=== PATIENT | female | born 1960 | race Caucasian/White ===

== ENCOUNTER → 2018-08-05 13:00 | Outpatient (CLI) | payer OTHER, SELFPAY | PROVIDERS: Family Provider Acupuncturist; PCP Acupuncturist | DX: Z23 Encounter for immunization (principal) | CPT/HCPCS: 90471; 90686 ==

== ENCOUNTER → 2019-06-10 14:06 | Outpatient (CLI) | payer OTHER, SELFPAY ==
[2019-06-10 16:50] LABS: Free T3, Triiodothyronine Free 4.62 pg/mL (2.77-5.27); Free T4, Direct Thyroxine 0.89 ng/dL (0.78-2.19)
[2019-06-10 17:05] LABS: Thyroid Stimulating Hormone < 0.02 uIU/mL (0.47-4.68)
[2019-06-16 15:11] LABS: Triiodothyronine T3 Total 154 ng/dL (76-181)
== END ==
PROVIDERS: PCP Internal Medicine; Visit Provider Internal Medicine
DX: E03.9 Hypothyroidism, unspecified (principal)
CPT/HCPCS: 36415; 84439; 84443; 84480; 84481

== ENCOUNTER → 2019-07-01 15:27 | Outpatient (CLI) | payer OTHER, SELFPAY | PROVIDERS: PCP Internal Medicine | DX: Z23 Encounter for immunization (principal) | CPT/HCPCS: 90471; 90686 ==

== ENCOUNTER → 2019-07-12 12:22 | Outpatient (CLI) | payer OTHER, SELFPAY ==
[2019-07-12 13:58] LABS: Free T4, Direct Thyroxine 2.52 ng/dL (0.78-2.19)
[2019-07-12 14:12] LABS: Thyroid Stimulating Hormone < 0.02 uIU/mL (0.47-4.68)
[2019-07-14 17:04] LABS: Triiodothyronine T3 Total 113 ng/dL (76-181)
== END ==
PROVIDERS: PCP Internal Medicine; Visit Provider Internal Medicine
DX: E03.9 Hypothyroidism, unspecified (principal)
CPT/HCPCS: 36415; 84439; 84443; 84480

== ENCOUNTER → 2019-08-23 12:02 | Outpatient (CLI) | payer OTHER, SELFPAY ==
[2019-08-23 13:28] LABS: Free T4, Direct Thyroxine 1.89 ng/dL (0.78-2.19)
[2019-08-23 13:42] LABS: Thyroid Stimulating Hormone < 0.02 uIU/mL (0.47-4.68)
[2019-08-25 14:57] LABS: Triiodothyronine T3 Total 134 ng/dL (76-181)
== END ==
PROVIDERS: PCP Internal Medicine; Visit Provider Internal Medicine
DX: E03.9 Hypothyroidism, unspecified (principal)
CPT/HCPCS: 36415; 84439; 84443; 84480

== ENCOUNTER → 2019-08-30 07:44 | Outpatient (CLI) | payer OTHER, SELFPAY ==
--- NOTE | 2019-08-30 | DI.US.S_ITS ---
PROCEDURE: US THYROID INDICATIONS: HYPOTHYROIDISM, UNSPECIFIED TECHNIQUE: Real-time scanning was performed of the thyroid gland, with image documentation. COMPARISON: None. FINDINGS: Right: Thyroid lobe measures 4.7 x 1.0 x 1.3 cm, and is homogeneous in echotexture. Left: Thyroid lobe measures 4.0 x 0.9 x 1.0 cm, and is homogenous in echotexture. Isthmus: 1.0 mm thick. IMPRESSION: Normal exam. Dictated by: Miguel KAPOOR Interpreted: Sylvia Tolliver MD on 08/30/2019 at 8:41 Approved by: Sylvia Tolliver M.D. on 08/30/2019 at 13:58
== END ==
PROVIDERS: PCP Internal Medicine; Visit Provider Internal Medicine
DX: E03.9 Hypothyroidism, unspecified (principal)
CPT/HCPCS: 76536

== ENCOUNTER → 2019-11-25 10:01 | Outpatient (CLI) | payer OTHER, SELFPAY ==
[2019-11-25 12:44] LABS: Free T4, Direct Thyroxine 1.85 ng/dL (0.78-2.19)
[2019-11-25 12:57] LABS: Thyroid Stimulating Hormone < 0.02 uIU/mL (0.47-4.68)
== END ==
PROVIDERS: PCP Internal Medicine; Referring Provider Internal Medicine Endocrinology, Diabetes & Metabolism; Visit Provider Internal Medicine Endocrinology, Diabetes & Metabolism
DX: E03.9 Hypothyroidism, unspecified (principal)
CPT/HCPCS: 36415; 84439; 84443

== ENCOUNTER → 2019-11-29 08:01 | Outpatient (CLI) | payer OTHER, SELFPAY ==
[2019-11-29 08:59] LABS: Cholesterol 202 mg/dL (140-199); HDL Cholesterol 72 mg/dL (40-60); LDL Cholesterol Calculated 116 mg/dL (<100); Triglycerides 69 mg/dL (35-150)
== END ==
PROVIDERS: PCP Internal Medicine; Referring Provider Internal Medicine; Visit Provider Internal Medicine
DX: E78.5 Hyperlipidemia, unspecified (principal)
CPT/HCPCS: 36415; 80061

== ENCOUNTER → 2019-12-20 09:51 | Outpatient (CLI) | payer OTHER, SELFPAY ==
[2019-12-23 11:21] LABS: Testosterone Free 0.43 ng/dL (0.10-0.85)
[2019-12-23 12:44] LABS: Testosterone Total 24.9 ng/dL (.)
== END ==
PROVIDERS: PCP Internal Medicine; Referring Provider Internal Medicine; Visit Provider Internal Medicine
DX: R63.5 Abnormal weight gain (principal)
CPT/HCPCS: 36415; 84402; 84403

== ENCOUNTER → 2020-03-06 12:01 | Outpatient (CLI) | payer OTHER, SELFPAY ==
[2020-03-06 17:20] LABS: Free T4, Direct Thyroxine 1.06 ng/dL (0.78-2.19)
[2020-03-06 17:34] LABS: Thyroid Stimulating Hormone 0.79 uIU/mL (0.47-4.68)
[2020-03-07 06:36] LABS: Triiodothyronine T3 Total 81 ng/dL (71-180)
== END ==
PROVIDERS: PCP Internal Medicine; Referring Provider Internal Medicine; Visit Provider Internal Medicine
DX: E03.9 Hypothyroidism, unspecified (principal)
CPT/HCPCS: 36415; 84439; 84443; 84480

== ENCOUNTER → 2020-07-06 | Outpatient (CLI) | payer OTHER, SELFPAY | PROVIDERS: PCP Internal Medicine; Referring Provider Internal Medicine; Visit Provider Internal Medicine | DX: Z23 Encounter for immunization (principal) | CPT/HCPCS: 90471; 90686 ==

== ENCOUNTER → 2020-10-12 08:42 | Outpatient (CLI) | payer OTHER, SELFPAY ==
[2020-10-12] MEDS: COVID-19 VACC(MODERNA-1)/PF 100 MCG/0.5 ML VIAL IM (08:45)
== END ==
PROVIDERS: Visit Provider Internal Medicine
DX: Z23 Encounter for immunization (principal)
CPT/HCPCS: 0011A; 91301

== ENCOUNTER → 2020-11-08 08:40 | Outpatient (CLI) | payer OTHER, SELFPAY ==
[2020-11-08] MEDS: COVID-19 VACC #2, MRNA(MOD) 100 MCG/0.5 ML VIAL IM (08:42)
== END ==
PROVIDERS: Visit Provider Internal Medicine
DX: Z23 Encounter for immunization (principal)
CPT/HCPCS: 0012A; 91301

== ENCOUNTER → 2020-11-20 08:44 | Outpatient (CLI) | payer OTHER, SELFPAY ==
[2020-11-20 09:50] LABS: Add Manual Diff / Slide Review NO; Basophils Absolute Auto 0 /uL (0-100); Basophils Percent Auto 0.7 % (0-2); Eosinophils Absolute Auto 200 /uL (0-450); Eosinophils Percent Auto 3.7 % (2-4); Hematocrit 44.5 % (36-46); Hemoglobin 14.6 g/dL (12.0-16.0); Lymphocytes Absolute Auto 1500 /uL (1100-4500); Lymphocytes Percent Auto 29.8 % (25-40); Mean Corpuscular HGB Conc 32.7 % (30-36); Mean Corpuscular Hemoglobin 29.4 PG (26-34); Mean Corpuscular Volume 89.8 fL (80-100); Monocytes Absolute Auto 300 /uL (0-900); Monocytes Percent Auto 6.8 % (3-14); Neutrophils Absolute Auto 3000 /uL (1500-7000); Platelet Count 260 X10^3/uL (150-400); Red Blood Cell Count 4.95 X10^6/uL (4.0-5.2); Red Cell Distribution Width 14.1 % (11.6-14.8); White Blood Cell Count 5.1 X10^3/uL (4.5-11.0)
[2020-11-20 10:06] LABS: Alanine Aminotransferase 24 IU/L (<35); Albumin 4.2 g/dL (3.5-5.0); Albumin Globulin Ratio 1.3 (1.0-2.8); Alkaline Phosphatase 84 U/L (38-126); Aspartate Aminotransferase 22 IU/L (14-36); BUN Creatinine Ratio 19.1 (6-22); Bilirubin Total 0.8 mg/dL (0.2-1.3); Blood Urea Nitrogen 17 mg/dL (7-17); Carbon Dioxide 26 mmol/L (22-32); Chloride 107 mmol/L (98-107); Cholesterol 233 mg/dL (140-199); Estimated Glomerular Filt Rate > 60.0 mL/min (>60); Globulin 3.2 g/dL (1.7-4.1); Glucose 121 mg/dL (80-110); HDL Cholesterol 73 mg/dL (40-60); HEMOLYSIS < 15 (0-50); LDL Cholesterol Calculated 144 mg/dL (<100); Potassium 3.7 mmol/L (3.4-5.1); Sodium 138 mmol/L (137-145); Total Protein 7.4 g/dL (6.3-8.2); Triglycerides 82 mg/dL (35-150)
[2020-11-20 10:44] LABS: Free T4, Direct Thyroxine 1.45 ng/dL (0.78-2.19)
[2020-11-20 10:58] LABS: Thyroid Stimulating Hormone 1.09 uIU/mL (0.47-4.68)
[2020-11-21 06:07] LABS: Triiodothyronine T3 Total 99 ng/dL (71-180)
[2020-11-21 11:37] LABS: Hemoglobin A1C% w Est Avg Glu 5.6 % (4.0-6.0)
== END ==
PROVIDERS: PCP Physician Assistant; Referring Provider Physician Assistant; Visit Provider Physician Assistant
DX: E03.9 Hypothyroidism, unspecified (principal); E78.5 Hyperlipidemia, unspecified
CPT/HCPCS: 36415; 80053; 80061; 83036; 84439; 84443; 84480; 85025

== ENCOUNTER → 2021-07-12 14:50 | Outpatient (CLI) | payer OTHER, SELFPAY | PROVIDERS: PCP Physician Assistant; Referring Provider Internal Medicine; Visit Provider Internal Medicine | DX: Z23 Encounter for immunization (principal) | CPT/HCPCS: 90471; 90686 ==

== ENCOUNTER → 2021-08-11 13:19 | Outpatient (CLI) | payer OTHER, SELFPAY ==
--- NOTE | 2021-08-11 13:19 | DI.MG.S_ITS ---
BILATERAL DIGITAL SCREENING MAMMOGRAM 3D/2D WITH CAD: 08/11/2021 CLINICAL: Routine screening. Comparison is made to exam dated: 03/17/2012 [facility]. The tissue of both breasts is heterogeneously dense. This may lower the sensitivity of mammography. Current study was also evaluated with a Computer Aided Detection (CAD) system. There is an oval equal density focal asymmetry with an obscured and circumscribed margin in the left breast at 5 o'clock anterior depth. No other significant masses, calcifications, or other findings are seen in either breast. IMPRESSION: INCOMPLETE: NEEDS ADDITIONAL IMAGING EVALUATION The oval equal density focal asymmetry in the left breast is indeterminate. Mediolateral and spot compression views as well as additional views with possible ultrasound are recommended. This exam was interpreted at Station ID: [id number]. NOTE: For mammograms, a report in lay terms will be sent to the patient. Approximately 15% of breast malignancies will not be visualized mammographically. In the management of a palpable breast mass, a negative mammogram must not discourage biopsy of a clinically suspicious lesion. Electronically Signed By: Jeff donnelly/grey:08/13/2021 11:31:30 letter sent: Additional Imaging Needed ACR BI-RADS Category 0: Incomplete 3340F
== END ==
PROVIDERS: PCP Physician Assistant; Referring Provider Physician Assistant; Visit Provider Physician Assistant
DX: Z12.31 Encounter for screening mammogram for malignant neoplasm of breast (principal)
CPT/HCPCS: 77063; 77067

== ENCOUNTER → 2021-08-17 13:23 | Outpatient (CLI) | payer OTHER, SELFPAY ==
[2021-08-17] MEDS: COVID-19 VACC #3, MRNA(MOD) 50 MCG/0.25 ML VIAL IM (13:25)
== END ==
PROVIDERS: PCP Physician Assistant; Visit Provider Internal Medicine
DX: Z23 Encounter for immunization (principal)
CPT/HCPCS: 0013A; 91301

== ENCOUNTER → 2021-09-05 14:48 | Outpatient (CLI) | payer OTHER, SELFPAY ==
--- NOTE | 2021-09-05 | DI.MG.S_ITS ---
UNILATERAL LEFT DIGITAL DIAGNOSTIC MAMMOGRAM 3D/2D WITH ADDITIONAL VIEWS: 09/05/2021 CLINICAL: Additional evaluation requested from prior study. Comparison is made to exams dated: 08/11/2021 mammogram and 03/17/2012 mammogram - [facility]. The tissue of left breast is heterogeneously dense. This may lower the sensitivity of mammography. The previously seen focal asymmetry in the left breast lower outer quadrant anterior depth is not redemonstrated. There is a tubular, likely vascular, structure in this location. It is suspected that a turn of the vessel was simulating an abnormality on the prior exam. No significant masses, calcifications, or other findings are seen in the breast. IMPRESSION: INCOMPLETE: NEEDS ADDITIONAL IMAGING EVALUATION Targeted ultrasound is recommended for further evaluation and will be performed immediately following this exam. This exam was interpreted at Station ID: [id number]. NOTE: For mammograms, a report in lay terms will be sent to the patient. Approximately 15% of breast malignancies will not be visualized mammographically. In the management of a palpable breast mass, a negative mammogram must not discourage biopsy of a clinically suspicious lesion. Electronically Signed By: Kristofer kimball/grey:09/05/2021 16:09:49 ACR BI-RADS Category 0: Incomplete 3340F
--- NOTE | 2021-09-05 14:50 | DI.US.S_ITS ---
LIMITED ULTRASOUND OF LEFT BREAST: 09/05/2021 CLINICAL: Patient returns today to evaluate a focal asymmetry in the left breast. Comparison is made to exams dated: 09/05/2021 mammogram, 08/11/2021 mammogram, and 03/17/2012 mammogram - [facility]. Real-time ultrasound of the left breast 4-6 o'clock region was performed. Landon scale images of the real-time examination were reviewed. Fibroglandular tissue and blood vessels, but no mass, are identifed in the area of the mammographic area of interest. IMPRESSION: BENIGN No sonographic abnormality is seen corresponding to the mammographic focal asymmetry in the left breast lower outer quadrant, which is compatible with normal breast tissue. Return to screening mammograms is recommended. There is no sonographic evidence of malignancy. A 1 year screening mammogram is recommended. This exam was interpreted at Station ID: [id number]. Electronically Signed By: Kristofer kimball/grey:09/05/2021 16:12:03 letter sent: Normal Exam Ultrasound BI-RADS: 2 Benign
== END ==
PROVIDERS: PCP Physician Assistant; Referring Provider Physician Assistant; Visit Provider Physician Assistant
DX: R92.8 Other abnormal and inconclusive findings on diagnostic imaging of breast (principal)
CPT/HCPCS: 76642; 77065; G0279

== ENCOUNTER → 2021-10-05 09:03 | Outpatient (CLI) | payer OTHER, SELFPAY ==
[2021-10-05 09:26] LABS: COVID19 -Nasal RAPID Negative (Negative)
== END ==
PROVIDERS: PCP Physician Assistant; Visit Provider Nurse Practitioner Family
DX: Z20.822 Contact with and (suspected) exposure to COVID-19 (principal)
CPT/HCPCS: 87635

== ENCOUNTER → 2021-12-28 08:23 | Outpatient (CLI) | payer OTHER, SELFPAY ==
[2021-12-28 09:54] LABS: Hemoglobin A1C% w Est Avg Glu 5.7 % (4.0-6.0)
[2021-12-28 10:00] LABS: Add Manual Diff / Slide Review NO; Basophils Absolute Auto 0 /uL (0-100); Basophils Percent Auto 0.6 % (0-2); Eosinophils Absolute Auto 200 /uL (0-450); Eosinophils Percent Auto 2.9 % (2-4); Hematocrit 42.5 % (36-46); Hemoglobin 14.2 g/dL (12.0-16.0); Lymphocytes Absolute Auto 1600 /uL (1100-4500); Mean Corpuscular HGB Conc 33.4 % (30-36); Mean Corpuscular Hemoglobin 29.1 PG (26-34); Monocytes Absolute Auto 400 /uL (0-900); Neutrophils Absolute Auto 3100 /uL (1500-7000); Neutrophils Percent Auto 59.5 % (50-75); Platelet Count 265 X10^3/uL (150-400); Red Blood Cell Count 4.89 X10^6/uL (4.0-5.2); Red Cell Distribution Width 14.6 % (11.6-14.8); White Blood Cell Count 5.2 X10^3/uL (4.5-11.0)
[2021-12-28 10:04] LABS: Alanine Aminotransferase 25 IU/L (<35); Albumin 4.4 g/dL (3.5-5.0); Albumin Globulin Ratio 1.6 (1.0-2.8); Alkaline Phosphatase 70 U/L (38-126); Aspartate Aminotransferase 22 IU/L (14-36); BUN Creatinine Ratio 21.5 (6-22); Blood Urea Nitrogen 17 mg/dL (7-17); Calcium 9.5 mg/dL (8.4-10.2); Carbon Dioxide 24 mmol/L (22-32); Chloride 107 mmol/L (98-107); Cholesterol 234 mg/dL (140-199); Estimated Glomerular Filt Rate > 60.0 mL/min (>60); Globulin 2.8 g/dL (1.7-4.1); Glucose 116 mg/dL (80-110); HDL Cholesterol 79 mg/dL (40-60); HEMOLYSIS < 15 (0-50); LDL Cholesterol Calculated 137 mg/dL (<100); Potassium 4.3 mmol/L (3.4-5.1); Sodium 139 mmol/L (137-145); Total Protein 7.2 g/dL (6.3-8.2); Triglycerides 88 mg/dL (35-150)
[2021-12-28 10:28] LABS: TSH w/ Reflex to FT4 0.67 uIU/mL (0.47-4.68)
== END ==
PROVIDERS: PCP Physician Assistant; Referring Provider Physician Assistant; Visit Provider Physician Assistant
DX: E03.9 Hypothyroidism, unspecified (principal); E78.5 Hyperlipidemia, unspecified; E66.9 Obesity, unspecified
CPT/HCPCS: 36415; 80053; 80061; 83036; 84443; 85025

== ENCOUNTER → 2022-07-18 14:09 | Outpatient (CLI) | payer OTHER, SELFPAY | PROVIDERS: PCP Family Medicine; Referring Provider Internal Medicine; Visit Provider Internal Medicine | DX: Z23 Encounter for immunization (principal) | CPT/HCPCS: 90471; 90686 ==

== ENCOUNTER → 2022-07-19 07:58 | Outpatient (CLI) | payer OTHER, SELFPAY ==
[2022-07-19 08:41] LABS: Add Manual Diff / Slide Review NO; Basophils Absolute Auto 0 /uL (0-100); Basophils Percent Auto 0.8 % (0-2); Eosinophils Absolute Auto 200 /uL (0-450); Eosinophils Percent Auto 3.4 % (2-4); Hematocrit 42.3 % (36-46); Lymphocytes Absolute Auto 1600 /uL (1100-4500); Mean Corpuscular HGB Conc 33.1 % (30-36); Mean Corpuscular Hemoglobin 28.7 PG (26-34); Mean Corpuscular Volume 86.7 fL (80-100); Monocytes Absolute Auto 400 /uL (0-900); Neutrophils Absolute Auto 3700 /uL (1500-7000); Neutrophils Percent Auto 62.8 % (50-75); Platelet Count 305 X10^3/uL (150-400); Red Blood Cell Count 4.87 X10^6/uL (4.0-5.2); Red Cell Distribution Width 14.3 % (11.6-14.8); White Blood Cell Count 5.8 X10^3/uL (4.5-11.0)
[2022-07-19 09:00] LABS: Hemoglobin A1C% w Est Avg Glu 5.6 % (4.0-6.0)
[2022-07-19 09:24] LABS: Alanine Aminotransferase 25 IU/L (<35); Albumin 4.3 g/dL (3.5-5.0); Albumin Globulin Ratio 1.3 (1.0-2.8); Alkaline Phosphatase 85 U/L (38-126); Aspartate Aminotransferase 22 IU/L (14-36); BUN Creatinine Ratio 15.7 (6-22); Bilirubin Total 0.6 mg/dL (0.2-1.3); Blood Urea Nitrogen 13 mg/dL (7-17); Calcium 8.8 mg/dL (8.4-10.2); Carbon Dioxide 25 mmol/L (22-32); Chloride 104 mmol/L (98-107); Cholesterol 233 mg/dL (140-199); Estimated Glomerular Filt Rate > 60 mL/min (>60); Globulin 3.2 g/dL (1.7-4.1); Glucose 129 mg/dL (80-110); HDL Cholesterol 68 mg/dL (40-60); HEMOLYSIS < 15 (0-50); LDL Cholesterol Calculated 150 mg/dL (<100); Potassium 4.2 mmol/L (3.4-5.1); Sodium 140 mmol/L (137-145); Total Protein 7.5 g/dL (6.3-8.2); Triglycerides 76 mg/dL (35-150)
[2022-07-19 09:37] LABS: Vitamin D 25 Hydroxy (D3) 51.3 ng/mL (30.0-100.0)
[2022-07-19 09:52] LABS: TSH w/ Reflex to FT4 0.97 uIU/mL (0.47-4.68)
[2022-07-19 10:27] LABS: Folate 8.2 ng/mL (2.76-20.0); Vitamin B12 > 1000 pg/mL (239-931)
== END ==
PROVIDERS: PCP Family Medicine; Referring Provider Family Medicine; Visit Provider Family Medicine
DX: E03.9 Hypothyroidism, unspecified (principal); E78.5 Hyperlipidemia, unspecified; R73.9 Hyperglycemia, unspecified; E56.9 Vitamin deficiency, unspecified
CPT/HCPCS: 36415; 80053; 80061; 82306; 82607; 82746; 83036; 84443; 85025

== ENCOUNTER → 2022-09-03 13:06 | Outpatient (ROUT) | payer OTHER, SELFPAY ==
[2022-09-03 13:34] LABS: COVID19 -Nasal RAPID Negative (Negative)
== END ==
PROVIDERS: PCP Family Medicine; Visit Provider Family Medicine
DX: Z20.822 Contact with and (suspected) exposure to COVID-19 (principal)
CPT/HCPCS: 87635

== ENCOUNTER → 2022-11-08 14:58 | Outpatient (CLI) | payer OTHER, SELFPAY ==
--- NOTE | 2022-11-08 | DI.MG.S_ITS ---
BILATERAL DIGITAL SCREENING MAMMOGRAM 3D/2D WITH CAD: 11/08/2022 CLINICAL: Routine screening. Comparison is made to exam dated: 08/11/2021 mammogram - [facility]. There are scattered areas of fibroglandular density in both breasts (category b / 25%-50% glandular tissue). Current study was also evaluated with a Computer Aided Detection (CAD) system. No significant masses, calcifications, or other findings are seen in either breast. There has been no significant interval change. IMPRESSION: NEGATIVE There is no mammographic evidence of malignancy. A 1 year screening mammogram is recommended. Based on the Tyrer Cuzick model (a risk assessment model) the patient's lifetime risk is 8.4% and her 10 year risk is 3.6%. According to the ACR, ACS, and NCCN guidelines, an annual breast MRI exam along with mammogram is recommended if the patient's lifetime risk is 20% or greater. This exam was interpreted at Station ID: [id number]. NOTE: For mammograms, a report in lay terms will be sent to the patient. Approximately 15% of breast malignancies will not be visualized mammographically. In the management of a palpable breast mass, a negative mammogram must not discourage biopsy of a clinically suspicious lesion. Electronically Signed By: Yuki patricia/grey:11/08/2022 16:28:33 letter sent: Normal Exam ACR BI-RADS Category 1: Negative 3341F
== END ==
PROVIDERS: PCP Family Medicine; Referring Provider Family Medicine; Visit Provider Family Medicine
DX: Z12.31 Encounter for screening mammogram for malignant neoplasm of breast (principal); Z78.0 Asymptomatic menopausal state; Z13.820 Encounter for screening for osteoporosis
CPT/HCPCS: 77063; 77067; 77080

== ENCOUNTER → 2023-03-15 09:14 | Outpatient (CLI) | payer OTHER, SELFPAY ==
[2023-03-15 10:17] LABS: Alanine Aminotransferase 24 IU/L (<35); Albumin 4.2 g/dL (3.5-5.0); Albumin Globulin Ratio 1.6 (1.0-2.8); Alkaline Phosphatase 86 U/L (38-126); Aspartate Aminotransferase 21 IU/L (14-36); BUN Creatinine Ratio 14.9 (6-22); Bilirubin Total 0.9 mg/dL (0.2-1.3); Blood Urea Nitrogen 13 mg/dL (7-17); Calcium 9.4 mg/dL (8.4-10.2); Carbon Dioxide 26 mmol/L (22-32); Chloride 103 mmol/L (98-107); Estimated Glomerular Filt Rate > 60 mL/min (>60); Globulin 2.7 g/dL (1.7-4.1); Glucose 124 mg/dL (80-110); HEMOLYSIS < 15 (0-50); Potassium 4.4 mmol/L (3.4-5.1); Sodium 139 mmol/L (137-145); Total Protein 6.9 g/dL (6.3-8.2)
[2023-03-15 10:47] LABS: Thyroid Stimulating Hormone 1.77 uIU/mL (0.47-4.68)
[2023-03-16 07:45] LABS: x Labcorp Estim. Avg Glu (eAG) 120 mg/dL (.); x Labcorp Hemoglobin A1c 5.8 % (4.8-5.6)
== END ==
PROVIDERS: PCP Nurse Practitioner Family; Referring Provider Nurse Practitioner Family; Visit Provider Nurse Practitioner Family
DX: E11.9 Type 2 diabetes mellitus without complications (principal); E03.9 Hypothyroidism, unspecified; E66.9 Obesity, unspecified; K59.00 Constipation, unspecified; G47.00 Insomnia, unspecified
CPT/HCPCS: 36415; 80053; 83036; 84443

== ENCOUNTER → 2023-03-20 13:36 | Outpatient (CLI) | payer OTHER, SELFPAY ==
--- NOTE | 2023-03-20 | DI.ECHO.S_ITS ---
[place] [facility] +---------+ : : [address] : : : : [id number] : : : : Phone: [phone]---------+ Echocardiogram Report + + :Name: PIA WINSLOW I Study Date: 03/20/2023 Height: 63 in : :[facility] ReadingLocation: Weight: 230 lb : : Gender: Female BSA: 2.1 m2 : :: 1960 Age: 62 yrs BP: 144/89 mmHg: :Reason For Study: DYSPNEA : :Ordering Physician: JANET, : :ANGY Performed By: Delfina Ryan : :Referring: ANGY CUNNINGHAM : + + Interpretation Summary 1) Normal left ventricular thickness, size, wall motion, and systolic function (EF 60-65%). 2) Normal right ventricular size and function. 3) No significant valvular abnormalities. 4) No prior Echo available for comparison. Procedure: A two-dimensional transthoracic echocardiogram with color flow and Doppler was performed. The study quality was technically adequate. There is no prior echocardiogram noted for this patient. The patient was in sinus rhythm with heart rates between 63-75 bpm during the exam. Left Ventricle: The left ventricle is normal in size and wall thickness. The ejection fraction is estimated to be 60-65%. Left ventricular systolic function appears normal without focal wall motion abnormalities. Diastolic parameters suggest probable normal left ventricular diastolic function and normal filling pressures. Right Ventricle: The right ventricle is normal in size and function. Atria: The left atrial size is normal. Right atrial size is normal. There is no Doppler evidence for an interatrial shunt. Mitral Valve: The mitral valve leaflets appear mildly thickened, but open well. There is no mitral regurgitation noted. Aortic Valve: The aortic valve is trileaflet. The aortic valve opens well. There is no aortic valve stenosis. No aortic regurgitation is present. Tricuspid Valve: The tricuspid valve is normal in structure and function. There is trace tricuspid regurgitation. Pulmonary artery pressures cannot be estimated because of the lack of a measurable TR jet velocity. Pulmonic Valve: The pulmonic valve leaflets are thin and pliable; valve motion is normal. There is no pulmonic valvular regurgitation. Great Vessels: The aortic root is normal size. The dimensions of the ascending aorta are normal. The IVC is of normal diameter and collapses greater than 50% with a sniff. This suggests a low right atrial pressure of 3 mm Hg. Pericardium/ Pleura There is no pericardial effusion. There is no pleural effusion. MMode/2D Measurements & Calculations LVIDd: 4.8 cm LVOT diam: 2.2 cm LVIDs: 3.2 cm Ao root diam: 2.8 cm FS: 33.7 % asc Aorta Diam: 3.3 cm EPSS: 0.50 cm Ao Arch Diam (Prox Trans): 2.9 cm IVSd: 0.89 cm LVPWd: 1.0 cm LV damico. diameter/BSA (cm/m^2): 2.4 LV sys. diameter/BSA (cm/m^2): 1.6 LA A2 area: 15.9 cm2 RA long axis: 4.6 cm LA A4 area: 19.3 cm2 RA area: 11.9 cm2 LA length (vol): 5.4 cm RA vol: 26.5 ml LA vol: 48.2 ml RA : 12.9 ml/m2 LA vol index: 23.5 ml/m2 IVC diam: 1.6 cm RVD1 (basal): 3.4 cm RVD2 (mid): 2.6 cm TAPSE: 1.9 cm Doppler Measurements & Calculations Ao V2 max: 145.3 cm/sec LVOT Max Jose A: 109.2 cm/sec Ao V2 mean: 100.9 cm/sec LV V1 max P.8 mmHg Ao max P.4 mmHg LV V1 VTI: 26.1 cm Ao mean P.5 mmHg OCTAVIO(I,D): 2.9 cm2 Ao V2 VTI: 33.8 cm OCTAVIO(V,D): 2.9 cm2 sev ratio: 0.77 OCTAVIO indexed to BSA (cm^2/m^2): 1.4 MV E max jose a: 67.9 cm/sec PA V2 max: 102.2 cm/sec MV A max jose a: 91.6 cm/sec PA V2 mean: 70.1 cm/sec MV E/A: 0.74 PA mean P.2 mmHg Med Peak E' Jose A: 6.7 cm/sec PA pr(Accel): 7.1 mmHg E/E' med: 10.2 Lat Peak E' Jose A: 9.6 cm/sec E/E' lat: 7.1 E/e' average: 8.6 MV dec time: 0.23 sec SV(LVOT): 99.4 ml Reading Physician:03:45 PM
--- NOTE | 2023-03-21 02:11 | DI.NM.S_ITS ---
DATE OF SERVICE: 03/20/2023 INDICATIONS: Exertional shortness of breath. CARDIAC STRESS: The patient underwent exercise stress test under the supervision of an attending staff. The patient walked on Arias protocol for 8 minutes and 16 seconds, achieved maximum heart rate of 166 which was 105% of target heart rate. Resting blood pressure 170/88 and peak blood pressure 218/100 mmHg. Achieved 10.1 METs of workload. JESSICA -25%. Baseline rhythm was sinus. During stress, no convincing ischemic changes seen. Occasional PVCs without any complex arrhythmias. No ischemic symptoms. CONCLUSION: Exercise stress test is negative for inducible ischemia. Good exercise tolerance. JESSICA -25%. Elevated baseline blood pressure 170/88 and peak blood pressure 218/100 mmHg. No ischemic EKG changes. No complex arrhythmias. No anginal symptoms. Overall, low-risk exercise stress test. Karen Pulido - KAMI/mony/kt doc#: [id number]/job#: [id number] dd: 03/20/2023 17:10:00 dt: 03/21/2023 02:04:00 DICTATING /COPIES TO: Malena Abarca MD COPIES MNE: FILIPE;
== END ==
PROVIDERS: PCP Nurse Practitioner Family; Referring Provider Internal Medicine Cardiovascular Disease; Visit Provider Internal Medicine Cardiovascular Disease
DX: R06.09 Other forms of dyspnea (principal)
CPT/HCPCS: 93017; 93306

== ENCOUNTER → 2023-04-10 06:42 | Outpatient (CLI) | payer OTHER, SELFPAY ==
--- NOTE | 2023-04-17 10:11 | PM.PFT.1 ---
Pulmonary Function Test Referral & Results Date Patient Seen: 04/10/23 Results: The spirometry demonstrates an FVC of 3.06 L which is 98% of predicted. The FEV1 was measured at 2.54 L which is 106% of predicted. The FEV1/FVC ratio was 83 which is 106% of predicted. Following the administration of bronchodilator there was no notable change to above normal numbers. Lung volumes show an SVC of 3.55 L which is 122% of predicted. The diffusing capacity was measured at 25.37 which is 110% of predicted. The maximum voluntary ventilation was normal Interpretation: This study demonstrates normal pulmonary function
== END ==
PROVIDERS: PCP Nurse Practitioner Family; Referring Provider Nurse Practitioner Family; Visit Provider Nurse Practitioner Family
DX: R06.2 Wheezing (principal)
CPT/HCPCS: 94060; 94726; 94729

== ENCOUNTER → 2023-07-24 08:51 | Outpatient (CLI) | payer OTHER, SELFPAY | PROVIDERS: PCP Nurse Practitioner Family; Referring Provider Family Medicine; Visit Provider Family Medicine | DX: Z23 Encounter for immunization (principal) | CPT/HCPCS: 90471; 90686 ==

== ENCOUNTER → 2023-12-13 09:25 | Outpatient (CLI) | payer OTHER, SELFPAY ==
--- NOTE | 2023-12-13 09:26 | DI.MG.S_ITS ---
BILATERAL DIGITAL SCREENING MAMMOGRAM 3D/2D WITH CAD: 12/13/2023 CLINICAL: Routine screening. Comparison is made to exams dated: 11/08/2022 mammogram, 09/05/2021 mammogram, and 08/11/2021 mammogram - [facility]. There are scattered areas of fibroglandular density in both breasts (category b / 25%-50% glandular tissue). Current study was also evaluated with a Computer Aided Detection (CAD) system. No significant masses, calcifications, or other findings are seen in either breast. There has been no significant interval change. IMPRESSION: NEGATIVE There is no mammographic evidence of malignancy. A 1 year screening mammogram is recommended. Based on the Tyrer Cuzick model (a risk assessment model) the patient's lifetime risk is 8.1% and her 10 year risk is 3.6%. According to the ACR, ACS, and NCCN guidelines, an annual breast MRI exam along with mammogram is recommended if the patient's lifetime risk is 20% or greater. This exam was interpreted at Station ID: [id number]. NOTE: For mammograms, a report in lay terms will be sent to the patient. Approximately 15% of breast malignancies will not be visualized mammographically. In the management of a palpable breast mass, a negative mammogram must not discourage biopsy of a clinically suspicious lesion. Electronically Signed By: Yuki patricia/grey:12/15/2023 16:33:28 letter sent: Normal Exam ACR BI-RADS Category 1: Negative 3341F
== END ==
LOC: MAMMO 09:26
PROVIDERS: PCP Nurse Practitioner Family; Referring Provider Nurse Practitioner Family; Visit Provider Nurse Practitioner Family
DX: Z12.31 Encounter for screening mammogram for malignant neoplasm of breast (principal); R92.323 Mammographic fibroglandular density, bilateral breasts
CPT/HCPCS: 77063; 77067

== ENCOUNTER → 2024-03-24 07:03 | Outpatient (CLI) | payer OTHER, SELFPAY ==
[2024-03-24 08:36] LABS: Alanine Aminotransferase 38 IU/L (<35); Albumin 4.3 g/dL (3.5-5.0); Albumin Globulin Ratio 1.7 (1.0-2.8); Alkaline Phosphatase 107 U/L (38-126); Aspartate Aminotransferase 32 IU/L (14-36); BUN Creatinine Ratio 16.7 (6-22); Bilirubin Total 0.6 mg/dL (0.2-1.3); Blood Urea Nitrogen 16 mg/dL (7-17); Calcium 8.8 mg/dL (8.4-10.2); Carbon Dioxide 25 mmol/L (22-32); Chloride 107 mmol/L (98-107); Estimated Glomerular Filt Rate > 60 mL/min (>60); Globulin 2.5 g/dL (1.7-4.1); Glucose 122 mg/dL (80-110); HEMOLYSIS < 15 (0-50); Potassium 4.4 mmol/L (3.4-5.1); Sodium 138 mmol/L (137-145); Total Protein 6.8 g/dL (6.3-8.2)
[2024-03-24 09:00] LABS: TSH w/ Reflex to FT4 1.81 uIU/mL (0.47-4.68)
[2024-03-24 10:02] LABS: Creatinine Urine Random 193.14 mg/dL
[2024-03-24 10:03] LABS: Microalbumin Urine Random 0.7 mg/dL (0-1.6)
[2024-03-24 21:38] LABS: Hemoglobin A1C% w Est Avg Glu 5.7 % (4.0-6.0)
[2024-04-29 12:38] LABS: Cholesterol,Total 171
[2024-04-29 12:39] LABS: HDL Cholesterol 77; Triglycerides 85
[2024-04-29 12:40] LABS: VLDL Cholesterol Cal 16
[2024-04-29 12:41] LABS: LDL Cholesterol Cal 78
[2024-04-29 12:43] LABS: Cholesterol HDL Ratio 2.2
== END ==
PROVIDERS: PCP Nurse Practitioner Family; Referring Provider Nurse Practitioner Family; Visit Provider Nurse Practitioner Family
DX: E11.9 Type 2 diabetes mellitus without complications (principal); E78.5 Hyperlipidemia, unspecified; I10 Essential (primary) hypertension
CPT/HCPCS: 36415; 80053; 80061; 82043; 82570; 83036; 84443

== ENCOUNTER → 2024-06-04 18:39 | Outpatient (CLI) | payer OTHER, SELFPAY | PROVIDERS: PCP Nurse Practitioner Family; Visit Provider Nurse Practitioner Family | DX: R30.0 Dysuria (principal) | CPT/HCPCS: 87086 ==

== ENCOUNTER → 2024-08-09 | Outpatient (CLI) | payer OTHER, SELFPAY | PROVIDERS: PCP Nurse Practitioner Family; Referring Provider Internal Medicine; Visit Provider Internal Medicine | DX: Z23 Encounter for immunization (principal) | CPT/HCPCS: 90471; 90656 ==

== ENCOUNTER → 2025-03-08 08:07 | Outpatient (CLI) | payer OTHER, SELFPAY ==
[2025-03-08 08:56] LABS: Add Manual Diff / Slide Review NO; Basophils Absolute Auto 100 /uL (0-100); Basophils Percent Auto 0.9 % (0-2); Eosinophils Absolute Auto 200 /uL (0-450); Eosinophils Percent Auto 3.9 % (2-4); Hematocrit 43.3 % (36-46); Hemoglobin 14.2 g/dL (12.0-16.0); Lymphocytes Absolute Auto 1600 /uL (1100-4500); Lymphocytes Percent Auto 27.3 % (25-40); Mean Corpuscular HGB Conc 32.8 % (30-36); Mean Corpuscular Hemoglobin 29.5 PG (26-34); Mean Corpuscular Volume 89.8 fL (80-100); Monocytes Absolute Auto 400 /uL (0-900); Monocytes Percent Auto 6.2 % (3-14); Neutrophils Absolute Auto 3600 /uL (1500-7000); Neutrophils Percent Auto 61.7 % (50-75); Platelet Count 303 X10^3/uL (150-400); Red Blood Cell Count 4.83 X10^6/uL (4.0-5.2); Red Cell Distribution Width 14.5 % (11.6-14.8); White Blood Cell Count 5.9 X10^3/uL (4.5-11.0)
[2025-03-08 09:23] LABS: Hemoglobin A1C% w Est Avg Glu 5.3 % (4.0-6.0)
[2025-03-08 09:38] LABS: Alanine Aminotransferase 18 IU/L (<35); Albumin 4.4 g/dL (3.5-5.0); Alkaline Phosphatase 71 U/L (38-126); Aspartate Aminotransferase 21 IU/L (14-36); BUN Creatinine Ratio 18.6 (6-22); Blood Urea Nitrogen 16 mg/dL (7-17); Calcium 9.3 mg/dL (8.4-10.2); Carbon Dioxide 27 mmol/L (22-32); Chloride 105 mmol/L (98-107); Cholesterol 179 mg/dL (140-199); Estimated Glomerular Filt Rate > 60 mL/min (>60); Globulin 2.2 g/dL (1.7-4.1); Glucose 101 mg/dL (70-99); HDL Cholesterol 85 mg/dL (40-60); HEMOLYSIS < 15 (0-50); LDL Cholesterol Calculated 80 mg/dL (<100); Potassium 4.8 mmol/L (3.4-5.1); Sodium 138 mmol/L (137-145); Total Protein 6.6 g/dL (6.3-8.2); Triglycerides 69 mg/dL (35-150)
[2025-03-08 09:55] LABS: TSH w/ Reflex to FT4 0.99 uIU/mL (0.47-4.68)
[2025-03-08 10:14] LABS: Vitamin B12 546 pg/mL (239-931)
[2025-03-08 20:51] LABS: Hep C Virus Ab w/Reflex Quant NEGATIVE s/c (NEGATIVE)
== END ==
PROVIDERS: PCP Registered Nurse; Referring Provider Registered Nurse; Visit Provider Registered Nurse
DX: Z00.00 Encounter for general adult medical examination without abnormal findings (principal); Z11.59 Encounter for screening for other viral diseases; Z13.0 Encounter for screening for diseases of the blood and blood-forming organs and certain disorders involving the immune mechanism; Z13.21 Encounter for screening for nutritional disorder; Z13.29 Encounter for screening for other suspected endocrine disorder; Z13.220 Encounter for screening for lipoid disorders
CPT/HCPCS: 36415; 80053; 80061; 82607; 83036; 84443; 85025; 86803

== ENCOUNTER → 2025-03-19 07:38 | Outpatient (CLI) | payer OTHER, SELFPAY ==
--- NOTE | 2025-03-19 07:39 | DI.MG.S_ITS ---
MM screening mammo BI: 03/19/2025. BI-RADS: 1 CLINICAL: 64-year old female for bilateral screening mammogram. Tyrer-Cuzick lifetime risk of 7.2%. No personal or first-degree family history of breast cancer. PRIOR EXAMS 12/13/2023, 11/08/2022, 09/05/2021, 08/11/2021. MAMMOGRAPHY TECHNIQUE: 2D and 3D (tomosynthesis) digital mammographic views obtained, with additional images as needed for full coverage. Current study was also evaluated with a Computer Aided Detection (CAD) system. DENSITY B. There are scattered areas of fibroglandular density. MAMMOGRAPHY FINDINGS Bilateral: No suspicious mass, asymmetry, microcalcification, or other abnormality seen. No significant change from comparison. IMPRESSION: * No evidence of malignancy. RECOMMENDATIONS Bilateral * Annual screening mammography. OVERALL ASSESSMENT CATEGORY BI-RADS-1: Negative. The [employer] recommends annual screening mammography beginning at age 40 for women with average risk of breast cancer. ELECTRONICALLY SIGNED: Janis Price M.D. on 03/21/2025 at 02:29:14 PM PT Interpreting Station ID: [id number]
== END ==
LOC: MAMMO 07:38
PROVIDERS: PCP Registered Nurse; Referring Provider Nurse Practitioner Family; Visit Provider Nurse Practitioner Family
DX: Z12.31 Encounter for screening mammogram for malignant neoplasm of breast (principal)
CPT/HCPCS: 77063; 77067